=== PATIENT | female | born 1980 | race Caucasian/White ===

== ENCOUNTER 2023-08-31 06:52 | Observation (INO) | payer BC ==
[2023-08-31] MEDS ORDERED: Acetaminophen 500 MG TAB PO PRN (08:32)
[2023-08-31] MEDS ORDERED: Promethazine HCl 25 MG/ML VIAL IM PRN (08:32)
[2023-08-31] MEDS ORDERED: Ondansetron PF 4 MG/2 ML Vial IVP PRN (08:32)
[2023-08-31] MEDS ORDERED: hydrALAZINE 20 MG/ML VIAL SLOW IVP PRN (08:32)
[2023-08-31] MEDS ORDERED: Lactated Ringer's 1,000 ML IV SCH (08:45)
[2023-08-31 09:15] VITALS: BMI 27.1
[2023-08-31] MEDS: Betamet Acet/Betamet Na Ph 30 MG/5 ML VIAL IM SCH (09:15)
[2023-08-31 09:52] LABS: Hematocrit 34.7 % (34.9-44.5); Hemoglobin 12.1 g/dL (12.0-15.5); Mean Corpuscular HGB CONC 34.9 g/dL (32.0-36.0); Mean Corpuscular Hemoglobin 32.4 pg (27.0-33.0); Mean Platelet Volume 10.6 fL (7.4-10.4); Platelet Count 251 10x3/uL (150-450); RBC Distribution Width 14.3 % (11.5-14.5); Red Blood Cell (RBC) Count 3.73 10x6/uL (3.90-5.03); White Blood Cell (WBC) Count 8.2 10x3/uL (3.5-10.5)
[2023-08-31 10:24] LABS: HBsAg Index 0.15 S/CO (0-0.99); Hep B Surf Ag - L&D Non-Reactive S/CO (NonReactive)
[2023-08-31 10:25] LABS: Syphilis Antibody Nonreactive (Nonreactive); Syphilis Antibody Index 0.02 S/CO (<1.00 Non-Reactive)
== END 2023-09-01 10:00 | disposition home or self-care (01) ==
LOC: CSHLD/OP 06:52 → INTOOBSV 08:32 → CSHLD 08:32
PROVIDERS: ADMIT Obstetrics & Gynecology; ATTEND Obstetrics & Gynecology
DX: O44.13 Complete placenta previa with hemorrhage, third trimester (principal); O09.813 Supervision of pregnancy resulting from assisted reproductive technology, third trimester; Z3A.32 32 weeks gestation of pregnancy; Z79.82 Long term (current) use of aspirin; Z79.899 Other long term (current) drug therapy
CPT/HCPCS: 36415; 85027; 86780; 86850; 86900; 86901; 87340; 99285; J0702

== ENCOUNTER 2023-09-11 06:31 | Inpatient (IN) | payer BC ==
[2023-09-11 06:46] VITALS: BMI 25.9
[2023-09-11] MEDS ORDERED: hydrALAZINE 20 MG/ML VIAL SLOW IVP PRN ×3 (07:33→15:53)
[2023-09-11] MEDS: Lactated Ringer's 1,000 ML IV SCH (07:50)
[2023-09-11 08:13] LABS: #Basophils 0.06 10x3/uL (0.0-0.2); #Monocytes 0.95 10x3/uL (0.0-1.1); #Neutrophils 6.81 10x3/uL (1.5-8.4); %Basophils 0.6 % (0.0-2.0); %Lymphocytes 16.9 % (18.0-47.0); %Monocytes 9.5 % (0.0-10.0); %Neutrophils 68.3 % (40.0-75.0); Hematocrit 34.1 % (34.9-44.5); Hemoglobin 11.8 g/dL (12.0-15.5); Mean Corpuscular HGB CONC 34.6 g/dL (32.0-36.0); Mean Corpuscular Hemoglobin 31.6 pg (27.0-33.0); Mean Corpuscular Volume 91.2 fL (81.6-98.3); Mean Platelet Volume 10.6 fL (7.4-10.4); Platelet Count 293 10x3/uL (150-450); RBC Distribution Width 14.6 % (11.5-14.5); Red Blood Cell (RBC) Count 3.74 10x6/uL (3.90-5.03)
[2023-09-11] MEDS ORDERED: Bicitra 30 ML UDCUP PO PRN (08:15)
[2023-09-11 08:37] LABS: ALT (SGPT) 9 U/L (8-55); AST (SGOT) 15 U/L (5-34); Albumin 2.7 g/dL (3.5-5.0); Alkaline Phosphatase 191 U/L (40-110); Anion Gap 12 mmol/L (10-20); BUN (Urea Nitrogen) 5 mg/dL (7.0-18.7); Bilirubin, Total 0.4 mg/dL (0.2-1.2); Calc. Creatinine Clearance 135 mL/min (70-130); Calcium 8.6 mg/dL (7.8-10.44); Carbon Dioxide 20 mmol/L (22-29); Chloride 108 mmol/L (98-107); Estimated GFR 117; Globulin 3.1 g/dL (2.4-3.5); Glucose 83 mg/dL (70-105); Potassium 4.1 mmol/L (3.5-5.1); Protein, Total 5.8 g/dL (6.0-8.3); Sodium 136 mmol/L (136-145)
[2023-09-11 08:39] LABS: INR-International Normal Ratio 0.9; Prothrombin Time 10.3 sec (9.5-12.1)
[2023-09-11 08:43] LABS: PTT 25.7 sec (22.0-33.0)
[2023-09-11] MEDS: CEFAZOLIN 2 GM in Sodium Chloride 0.9% 100 ML IVPB SCH (09:50)
[2023-09-11] MEDS: Famotidine/PF 20 mg/2ml Vial SLOW IVP PRN (09:51)
[2023-09-11] MEDS: Tranexamic Acid 1,000 MG/10 ML VIAL ONE (10:55)
[2023-09-11] MEDS: Methylergonovine 0.2 MG/ML VIAL ONE (11:25)
[2023-09-11] MEDS: Misoprostol 200 MCG TAB ONE (11:48)
[2023-09-11] MEDS ORDERED: fentaNYL 50 mcg/mL 1 mL Vial SLOW IVP PRN (11:58)
[2023-09-11] MEDS ORDERED: diphenhydrAMINE 50 MG/ML VIAL IVP PRN (11:58)
[2023-09-11] MEDS ORDERED: Promethazine HCl 25 MG/ML VIAL IM PRN (11:58)
[2023-09-11] MEDS ORDERED: HYDROmorphone 0.5 MG/0.5 ML SYRINGE SLOW IVP PRN (11:58)
[2023-09-11] MEDS ORDERED: Naloxone HCl 0.4 mg/ml Vial IV PRN (11:58)
[2023-09-11] MEDS ORDERED: Moisturizing Cream (Eucerin) 113 GM JAR TOP PRN (11:58)
[2023-09-11] MEDS ORDERED: Naloxone HCl 0.4 mg/ml Vial IVP PRN ×2 (11:58)
[2023-09-11] MEDS ORDERED: Meperidine HCl/PF 25 MG (1 mL) VIAL SLOW IVP PRN (11:58)
[2023-09-11] MEDS ORDERED: Communication Order-Pharmacy FS SCH (12:00)
[2023-09-11] MEDS: Ondansetron PF 4 MG/2 ML Vial IVP PRN ×2 (13:36→20:31)
[2023-09-11] MEDS: Ketorolac Tromethamine 30 MG (1 mL) VIAL IVP SCH (13:37)
[2023-09-11] MEDS ORDERED: diphenhydrAMINE 25 MG CAP PO PRN (13:45)
[2023-09-11] MEDS ORDERED: Boostrix 0.5 ML (Tdap) VIAL (>/=7 yrs of age) IM ONE (13:45)
[2023-09-11] MEDS ORDERED: Acetaminophen 325 MG TAB PO PRN (13:45)
[2023-09-11] MEDS ORDERED: Bisacodyl 10 MG SUPP PR PRN (15:53)
[2023-09-11] MEDS: Metoclopramide HCl 10 MG (2 mL) VIAL ONE (16:20)
[2023-09-11] MEDS: fentaNYL 50 mcg/mL 1 mL Vial ONE (16:20)
[2023-09-11] MEDS: ePHEDrine Sulfate 50 MG/10 ML VIAL ONE (16:20)
[2023-09-11] MEDS: Morphine PF 10 MG/10 ML VIAL ONE (16:20)
[2023-09-11] MEDS: Carboprost 250 MCG/ML AMP ONE (16:21)
[2023-09-11] MEDS: Oxytocin 10 UNITS/ML VIAL ONE ×3 (16:21→16:22)
[2023-09-11] MEDS: Promethazine HCl 25 MG/ML VIAL ONE (16:21)
[2023-09-11] MEDS: PHENYLEPHRINE-NS 100 MCG/ML 10 ML SYRINGE ONE (16:21)
[2023-09-11] MEDS: Ondansetron PF 4 MG/2 ML Vial ONE (16:21)
[2023-09-11] MEDS: Phenylephrine 40 MG/NS 250 ML 250 ML ONE (16:21)
[2023-09-11] MEDS: Phytonadione Neonatal 1 MG/0.5 ML AMP ONE (16:21)
[2023-09-11] MEDS: Erythromycin Base 0.5% Oint 1 GM TUBE ONE (16:21)
[2023-09-11] MEDS: Ketorolac Tromethamine 30 MG (1 mL) VIAL IVP PRN (20:31)
[2023-09-11] MEDS: Docusate 100 MG CAP PO SCH (20:38)
[2023-09-12] MEDS ORDERED: Ibuprofen 800 MG TAB PO SCH (06:00)
[2023-09-12] MEDS ORDERED: HYDROcodone/Acetaminophen 5/325 mg Tablet PO PRN ×4 (06:00)
[2023-09-12] MEDS: Ferrous Sulfate 325 MG TAB PO SCH (08:28)
[2023-09-12] MEDS: Ibuprofen 800 MG TAB PO SCH (08:29)
[2023-09-12] MEDS: Prenatal Vitamin 1 TAB PO SCH (08:35)
[2023-09-12] MEDS: Acetaminophen 325 MG TAB PO PRN (12:44)
[2023-09-12] MEDS: Simethicone Chewable 80 MG TAB PO PRN (20:45)
[2023-09-13 08:39] LABS: #Basophils 0.04 10x3/uL (0.0-0.2); #Eosinphils 0.34 10x3/uL (0.0-0.5); #Monocytes 1.27 10x3/uL (0.0-1.1); #Neutrophils 7.41 10x3/uL (1.5-8.4); %Basophils 0.4 % (0.0-2.0); %Eosinophils 3.2 % (0.0-6.0); %Lymphocytes 13.4 % (18.0-47.0); %Neutrophils 70.1 % (40.0-75.0); Hematocrit 31.8 % (34.9-44.5); Hemoglobin 10.9 g/dL (12.0-15.5); Mean Corpuscular HGB CONC 34.3 g/dL (32.0-36.0); Mean Corpuscular Hemoglobin 32.2 pg (27.0-33.0); Mean Corpuscular Volume 93.8 fL (81.6-98.3); Mean Platelet Volume 11.1 fL (7.4-10.4); Platelet Count 283 10x3/uL (150-450); RBC Distribution Width 14.5 % (11.5-14.5); Red Blood Cell (RBC) Count 3.39 10x6/uL (3.90-5.03); White Blood Cell (WBC) Count 10.6 10x3/uL (3.5-10.5)
[2023-09-13 09:01] VITALS: BP 120/74; TEMP 97.8
== END 2023-09-13 11:15 | disposition home or self-care (01) | DRG 786 ==
LOC: CSHLD/OP 06:31 → CSHLD 08:19 → CSHPP 15:34
PROVIDERS: ADMIT Obstetrics & Gynecology; ATTEND Obstetrics & Gynecology
PROC: 10D00Z1 Extraction of Products of Conception, Low, Open Approach (ICD-10-PCS; principal; 2023-09-11)
PROC: 3E033XZ Introduction of Vasopressor into Peripheral Vein, Percutaneous Approach (ICD-10-PCS; 2023-09-11)
DX: O44.03 Complete placenta previa NOS or without hemorrhage, third trimester (principal); O60.14X0 Preterm labor third trimester with preterm delivery third trimester, not applicable or unspecified; O76 Abnormality in fetal heart rate and rhythm complicating labor and delivery; Z3A.34 34 weeks gestation of pregnancy; Z37.0 Single live birth
CPT/HCPCS: 36415; 51702; 80053; 85025; 85384; 85610; 85730; 86850; 86900; 86901; 99285; J1885; J2210; J2274; J2405; J2550; J2590; J2765; J3010; J3490; J7120; S0028